=== PATIENT | female | born 1995 | race Caucasian/White ===

== ENCOUNTER 2017-10-28 17:13 | Outpatient (CLI) | payer OTHER ==
[2017-10-28 17:38] LABS: Appearance,Urine Cloudy (Clear); Bacteria,Urine Rare /hpf; Bilirubin,Urine Negative (Negative); Blood,Urine Negative (Negative); Calcium Oxalate Crystals,Urine Occasional /hpf; Color,Urine Yellow; Glucose,Urine (UA) Trace (Negative); Ketones,Urine Trace (Negative); Leukocyte Esterase,Urine Large (Negative); Mucus,Urine Many /hpf; Nitrite,Urine Negative (Negative); PH, Urine 5.5 (5.0-8.0); Protein,Urine 1+ (Negative); Squamous Epithelial Cell,Urine 33 /hpf (0-4); WBC,Urine 50 /hpf (0-5)
[2017-10-28 17:49] VITALS: BP 114/71; PULSE 101; RESP 17; TEMP 97.9
--- NOTE | 2017-10-29 10:36 | P.MSEPDOC ---
Presenting Problems - Arrival Data Date of Arrival on Unit: 10/28/17 Time of Arrival on Unit: 17:13 Mode of Transport: Ambulatory - Complaint OB-Reason for Admission/Chief Complaint: Possible Onset of Labor Comment: Lower abdominal cramping and lower back pain x 3 days Medical History - Information : 2 Para: 1 Term: 1 : 0 Abortions: Spontaneous or Elective: 0 Number of Living Children: 1 - Gestational Age Gestational Age by NORTH (wks/days): 37 Weeks and 3 Days - History Complications: No Care Review of Systems - Review of Systems Constitutional: No problems Breast: No problems ENT: No problems Cardiovascular: No problems Respiratory: No problems Gastrointestinal: No problems Genitourinary: No problems Musculoskeletal: No problems Neurological: No problems Skin: No problems Vital Signs - Temperature Temperature: 97.9 F Temperature Source: Oral - Pulse Pulse Oximetery Pulse Rate: 101 Pulse Assessment Method: Automatic Cuff - Respirations Respiratory Rate: 17 Oxygen Delivery Method: Room Air O2 Sat by Pulse Oximetry: 97 - Blood Pressure Right Arm Blood Pressure: 114/71 Blood Pressure Mean: 85 Blood Pressure Source: Automatic Cuff Medical Screen Scoring (Pre) - Cervical Exam Dilation: 1-3 cm = 1 Effacement: More than 50% = 2 Membranes: Intact - Uterine Contractions Frequency: N/A Duration: N/A Intensity: N/A - Maternal Vital Signs Maternal Temperature: N/A Maternal Blood Pressure: N/A Signs of Preeclampsia: N/A Maternal Respirations: N/A - Pain Assessment Pain Location and Character: Lower, Back, Abdomen Pain Scale Used: Numeric (1 - 10) Pain Intensity: 5 Pain Management Goal: 0 Pain Description: Cramping Pain Radiation Location: n/a Pain Frequency: Intermittent Pain Duration: 3 Pain Duration Units: Days Pain Behavior: Vocalization Effects of Pain: n/a Pain Aggravating Factors: None Pharmacological Interventions: Discuss Pain Med Options Non-Pharmacological Interventions: Distraction - Maternal Trauma Maternal Trauma: N/A - Assessment Baseline FHR: 140 Heart Rate - NICHD Category: Category I (Normal) = 0 NST: Reactive Position: N/A Station: N/A - Total Score Total Score (Pre): 3 - Level of Risk Level of Risk: Low (0-5) Physician Notification (Pre) - Physician Notified Physician Notified Date: 10/28/17 Physician Notified Time: 17:19 Physician/Practitioner Notifed:: Ranjan Spoke With: Ranjan New Order Received: Yes (U/A and cervical exam.) Medical Screen Scoring (Post) - Cervical Exam Dilation: 1-3 cm = 1 Effacement: More than 50% = 2 Membranes: Intact - Uterine Contractions Frequency: > or = 36 weeks =2 Duration: > 40 seconds = 2 Intensity: N/A - Maternal Vital Signs Maternal Temperature: N/A Maternal Blood Pressure: N/A Signs of Preeclampsia: N/A Maternal Respirations: N/A - Pain Assessment Pain Location and Character: Lower, Back, Abdomen Pain Scale Used: Numeric (1 - 10) Pain Intensity: 5 Pain Management Goal: 0 Pain Description: Cramping Pain Radiation Location: n/a Pain Frequency: Intermittent Pain Duration: 3 Pain Duration Units: Days Pain Behavior: Vocalization Effects of Pain: n/a Pain Aggravating Factors: None Pharmacological Interventions: Discuss Pain Med Options Non-Pharmacological Interventions: Darkened Room - Maternal Trauma Maternal Trauma: N/A - Assessment Heart Rate: 135 Heart Rate - NICHD Category: Category I (Normal) = 0 NST: Reactive Position: N/A Station: N/A - Total Score Total Score (Post): 7 - Post Treatment Level of Risk Post Treatment Level of Risk: Medium (6-9) Physician Notification (Post) - Physician Notified Physician Notified Date: 10/28/17 Physician Notified Time: 18:35 Physician/Practitioner Notified:: Ranjan Spoke With: Ranjan New Order Received: Yes (discharge home) Disposition - Disposition OB Disposition: Discharge to home Discharge Date: 10/28/17 Discharge Time: 18:40 I agree with the RN Medical Screening Exam: Yes Risk & Benefit of care provided described in d/c instruction: Yes Diagnosis: FALSE LABOR AT OR AFTER 37 COMPLETED WEEKS OF GESTATION
== END 2017-10-28 18:40 | disposition home or self-care (01) ==
LOC: FBPOP 17:13
PROVIDERS: ATTEND Obstetrics & Gynecology
DX: O47.1 False labor at or after 37 completed weeks of gestation (principal); Z3A.37 37 weeks gestation of pregnancy
CPT/HCPCS: 59025; 81001; G0463; 99213

== ENCOUNTER 2017-11-02 18:58 | Outpatient (CLI) | payer OTHER ==
[2017-11-02 19:53] VITALS: BP 112/75; PULSE 106; RESP 15; TEMP 97.7
--- NOTE | 2017-11-14 11:12 | P.MSEPDOC ---
Presenting Problems - Arrival Data Date of Arrival on Unit: 11/02/17 Time of Arrival on Unit: 18:58 Mode of Transport: Ambulatory - Complaint OB-Reason for Admission/Chief Complaint: Decreased Movement, Observation/ Evaluation Medical History - Information : 2 Para: 1 Term: 1 : 0 Abortions: Spontaneous or Elective: 0 Number of Living Children: 1 - Gestational Age Gestational Age by NORTH (wks/days): 38 Weeks and 1 Days Review of Systems - Review of Systems Constitutional: No problems Breast: No problems ENT: No problems Cardiovascular: No problems Respiratory: No problems Gastrointestinal: No problems Genitourinary: No problems Musculoskeletal: No problems Neurological: No problems Skin: No problems Vital Signs - Temperature Temperature: 97.7 F Temperature Source: Temporal Artery Scan - Pulse Pulse Oximetery Pulse Rate: 106 Pulse Assessment Method: Automatic Cuff - Respirations Respiratory Rate: 15 Oxygen Delivery Method: Room Air O2 Sat by Pulse Oximetry: 100 - Blood Pressure Right Arm Blood Pressure: 112/75 Blood Pressure Mean: 87 Blood Pressure Source: Automatic Cuff Medical Screen Scoring (Pre) - Cervical Exam Dilation: 1-3 cm = 1 Effacement: More than 50% = 2 Membranes: Intact - Uterine Contractions Frequency: > or = 36 weeks =2 Duration: N/A Intensity: N/A - Maternal Vital Signs Maternal Temperature: N/A Maternal Blood Pressure: N/A Signs of Preeclampsia: N/A Maternal Respirations: N/A - Pain Assessment Pain Location and Character: Lower, Abdomen Pain Scale Used: Numeric (1 - 10) Pain Intensity: 4 Pain Management Goal: 2 Pain Description: *Acute Pain Radiation Location: none Pain Frequency: Intermittent Pain Duration: 1 Pain Duration Units: Days Pain Behavior: None Exhibited Effects of Pain: none Pain Aggravating Factors: Contractions - Maternal Trauma Maternal Trauma: N/A - Assessment Baseline FHR: 130 Heart Rate - NICHD Category: Category I (Normal) = 0 NST: Reactive Position: N/A Station: N/A - Total Score Total Score (Pre): 5 - Level of Risk Level of Risk: Low (0-5) Medical Screen Scoring (Post) - Cervical Exam Dilation: 1-3 cm = 1 Effacement: More than 50% = 2 Membranes: Intact - Uterine Contractions Frequency: N/A Duration: N/A Intensity: N/A - Maternal Vital Signs Maternal Temperature: N/A Maternal Blood Pressure: N/A Signs of Preeclampsia: N/A Maternal Respirations: N/A - Pain Assessment Pain Location and Character: Lower, Abdomen Pain Scale Used: Numeric (1 - 10) Pain Intensity: 4 Pain Management Goal: 2 Pain Description: *Acute Pain Radiation Location: none Pain Frequency: Intermittent Pain Duration: 1 Pain Duration Units: Days Pain Behavior: Fidgeting Effects of Pain: none Pain Aggravating Factors: Contractions - Maternal Trauma Maternal Trauma: N/A - Assessment Heart Rate: 125 Heart Rate - NICHD Category: Category I (Normal) = 0 NST: Reactive Position: N/A Station: N/A - Total Score Total Score (Post): 3 - Post Treatment Level of Risk Post Treatment Level of Risk: Low (0-5) Physician Notification (Post) - Physician Notified Physician Notified Date: 11/02/17 Physician Notified Time: 20:15 Physician/Practitioner Notified:: Dr Woodruff New Order Received: Yes Disposition - Disposition OB Disposition: Discharge to home Discharge Date: 11/02/17 Discharge Time: 20:27 I agree with the RN Medical Screening Exam: Yes Risk & Benefit of care provided described in d/c instruction: Yes Diagnosis: DECREASED MOVEMENTS, THIRD TRIMESTER, FETUS 1
== END 2017-11-02 20:28 | disposition home or self-care (01) ==
LOC: FBPOP 18:58
PROVIDERS: ATTEND Obstetrics & Gynecology
DX: O36.8130 Decreased fetal movements, third trimester, not applicable or unspecified (principal); Z3A.38 38 weeks gestation of pregnancy
CPT/HCPCS: 59025; G0463; 99213

== ENCOUNTER 2017-11-02 22:30 | Inpatient (IN) | payer OTHER ==
[2017-11-02] MEDS: LACTATED RINGERS 1,000 ML IV SCH (23:50)
[2017-11-02] MEDS ORDERED: CARBOPROST TROMETHAMINE 250 MCG/ML 1 ML AMP IM PRN (23:53)
[2017-11-02] MEDS ORDERED: TERBUTALINE 1 MG/ML VIAL SQ PRN (23:53)
[2017-11-02] MEDS ORDERED: LIDOCAINE 1% (PF) 10 MG/ML (30 ML SDV) SQ PRN (23:53)
[2017-11-02] MEDS ORDERED: OXYTOCIN 10 UNIT/ML 1 ML VIAL IM PRN (23:53)
[2017-11-02] MEDS ORDERED: METHYLERGONOVINE 0.2 MG/ML 1 ML AMP IM PRN (23:53)
[2017-11-03 00:02] LABS: Basophils % (A) 0 %; Eosinophils # (A) 0.1 k/uL (0-0.7); Eosinophils % (A) 1 %; HCT 30.9 % (34.0-46.0); HGB 10.2 gm/dL (11.4-16.0); Hypochromasia Slight; Lymphocytes # (A) 1.7 k/uL (1.0-4.8); Lymphocytes % (A) 11 %; MCH 24.3 pg (25.0-35.0); MCV 73.7 fL (80.0-100.0); Mean Platelet Volume 8.9; Microcytosis Slight; Monocytes % (A) 7 %; Neutrophils % (A) 80 %; Platelet Count 266 k/uL (150-450); Poikilocytosis Moderate; RBC 4.19 m/uL (3.80-5.40); RDW 14.3 % (11.5-15.5)
[2017-11-03 00:04] VITALS: BMI 35.6
[2017-11-03] MEDS: LACTATED RINGERS 1,000 ML IV SCH ×3 (00:23→19:54)
[2017-11-03] MEDS ORDERED: fentaNYL (PF) 50 MCG/ML 5 ML AMP ONE (00:45)
[2017-11-03] MEDS ORDERED: SODIUM CHLORIDE 0.9% 100 ML BAG ONE (00:45)
[2017-11-03] MEDS ORDERED: BUPIVACAINE (PF) 0.25% 30 ML VIAL ONE (00:45)
[2017-11-03] MEDS ORDERED: BUPIVACAINE (PF) 0.25% 25 ML, fentaNYL (PF) 200 MCG in SODIUM CHLORIDE 0.9% 71 ML EPIDURAL ONE (01:09)
--- NOTE | 2017-11-03 07:15 | P.HPOB ---
History of Present Illness H&P Date: 11/03/17 Chief Complaint: 38+ weeks, early labor The patient is a 22-year-old 2 para 1001 admitted at 38+ weeks as established by an 8 week ultrasound. She is admitted in early labor with all signs reassuring. Her has been essentially incompetent though she did have chlamydia early in the which was treated and cured. Group B strep status is negative. Obstetrical history 2 para 1001 with 1 term vaginal delivery without complications. Current statistics are listed in history of present illness. EDC of 11/15/2017 was established by an 8 week ultrasound. Laboratory workup done Schutze blood type of O+ with a negative antibody screen. Rubella status is immune immune. The remainder of the laboratory workup was within normal limits. Early Glucola as well as second trimester Glucola were within normal limits. Group B strep status is negative. Gynecologic history: Essentially unremarkable though she was found chlamydia early in the and was treated and cured. There is no other history of STDs by the patient's report. Review of Systems Review of systems is confined to history of present illness. Past Medical History Past Medical History: No Reported History History of Any Multi-Drug Resistant Organisms: None Reported Past Surgical History: Adenoidectomy, Tonsillectomy Past Anesthesia/Blood Transfusion Reactions: No Reported Reaction Past Psychological History: No Psychological Hx Reported Smoking Status: Never smoker Past Alcohol Use History: None Reported Past Drug Use History: None Reported - Past Family History Mother Family Medical History: No Reported History Medications and Allergies Home Medications Medication Instructions Recorded Confirmed Type Sbe-Kpwm-Cyjdf Acid 1 cap PO HS 04/30/17 11/02/17 History [-U Capsule (formulary)] Allergies Allergy/AdvReac Type Severity Reaction Status Date / Time codeine AdvReac Nausea & Verified 11/02/17 22:34 Vomiting sulfamethoxazole AdvReac Nausea & Verified 11/02/17 22:34 [From Bactrim] Vomiting trimethoprim [From Bactrim] AdvReac Nausea & Verified 11/02/17 22:34 Vomiting Exam - Vital Signs Vital signs: Vital Signs Temp Pulse Resp BP 11/02/17 22:35 97.4 F L 124 H 15 128/73 Intake and Output 11/02/17 11/03/17 11/03/17 22:59 06:59 14:59 Intake Total 2000 Output Total 200 Balance 1800 Intake: Intake, IV Titration 2000 Amount Lactated Ringers 1,000 ml 2000 @ 125 mls/hr IV .Q8H [facility] Rx#:[id number] Output: Urine 200 Other: Weight 97.069 kg 97.069 kg In general, this is a well-developed, well-nourished white female in no acute distress. Her heart has a regular rhythm and rate without murmur. Her lungs are clear to auscultation bilaterally in all ferrell. Her abdomen is gravid, nondistended, has normal active bowel sounds, soft, nontender, and without any palpable masses aside from uterine fundus. Her extremities are without any cyanosis, clubbing, or edema and are nontender to palpation bilaterally. Digital cervical examination at this time demonstrates her to be 9 cm dilated, 100% effaced, the vertex in presentation at 0 station. Artificial rupture of membranes is carried out demonstrating clear fluid. Results Result Diagrams: 11/02/17 23:50 Abnormal Lab Results - Last 24 Hours (Table) 11/02/17 Range/Units 23:50 WBC 15.0 H (4.0-11.0) k/uL Hgb 10.2 L (11.4-16.0) gm/dL Hct 30.9 L (34.0-46.0) % MCV 73.7 L (80.0-100.0) fL MCH 24.3 L (25.0-35.0) pg Neutrophils # 12.0 H (1.3-7.7) k/uL Assessment and Plan (1) Active labor at term Current Visit: No Status: Acute Code(s): OSA3928 - SNOMED Code(s): 31053773 Plan: The patient is admitted for close maternal and surveillance and expectant management will be practiced. She is a good candidate for an epidural and one has been placed for analgesia. She will have close maternal and surveillance and expectant management will be practiced. Anticipate normal vaginal delivery in the near future.
[2017-11-03] MEDS ORDERED: diphenhydrAMINE 50 MG/ML 1 ML VIAL IVP PRN ×2 (07:33)
[2017-11-03] MEDS ORDERED: HYDROcodone/APAP 5-325MG 1 EACH TAB PO PRN (07:33)
[2017-11-03] MEDS ORDERED: BENZOCAINE/MENTHOL SPRAY 1 GM/SPRAY AEROSOL TOPICAL PRN (07:33)
[2017-11-03] MEDS ORDERED: ACETAMINOPHEN TAB 325 MG TAB PO PRN (07:33)
[2017-11-03] MEDS ORDERED: WITCH HAZEL 1 EACH MED..PAD TOPICAL PRN (07:33)
[2017-11-03] MEDS ORDERED: diphenhydrAMINE 50 MG CAP PO PRN (07:33)
[2017-11-03] MEDS ORDERED: ZOLPIDEM 5 MG TAB PO PRN (07:33)
[2017-11-03] MEDS ORDERED: HYDROCORTISONE 2.5% RECTAL CREAM 30 GM TUBE RECTAL PRN (07:33)
[2017-11-03] MEDS ORDERED: SIMETHICONE 80 MG CHEWABLE PO PRN (07:33)
[2017-11-03] MEDS ORDERED: diphenhydrAMINE 25 MG CAP PO PRN (07:33)
--- NOTE | 2017-11-03 07:38 | P.PROBDLV ---
Vaginal Delivery Note - . Vaginal Delivery Note: The patient is a 22-year-old 2 para 1001 admitted at 38+ weeks by good dating parameters. She is admitted in early active labor with all signs reassuring. Her has been uncomplicated aside from the discovery of chlamydia which was treated and cured. On labor and delivery, she initially presented for decreased movement was found to actually have adequate cervical change to diagnose labor. She was admitted for early active labor with all signs reassuring. On labor and delivery, she made slow progress through the active phase of labor and had an epidural catheter placed for analgesia. She underwent artificial rupture of membranes at approximately 9 cm of dilation for clear fluid. She then progressed quickly to complete and pushed over the course of 1-2 contractions to a normal spontaneous vaginal delivery of a viable 6 lbs. 8 oz. baby girl with Apgars of 9 at 1 minute and 9 at 5 minutes delivered in the direct occiput anterior position. The placenta was delivered spontaneously, intact, and grossly normal with a grossly normal three-vessel cord inserted roughly 2 cm from margin of the placental disc. There were no lacerations of the perineum, vagina, or cervix. Estimated blood loss for the entire case was approximately 100 mL. There were no complications. All sponge, instrument, and needle counts were correct. Both mother and are resting comfortably in recovery.
[2017-11-03] MEDS ORDERED: OXYTOCIN 20 UNITS/1000 ML NS 1,000 ML IV SCH (07:45)
[2017-11-03] MEDS: IBUPROFEN 600 MG TAB PO PRN ×2 (08:36→18:42)
[2017-11-03] MEDS: SENNOSIDES-DOCUSATE SODIUM 1 EACH TAB PO SCH ×2 (08:37→20:56)
[2017-11-04] MEDS: IBUPROFEN 600 MG TAB PO PRN ×2 (00:29→06:44)
--- NOTE | 2017-11-04 07:51 | P.DS ---
Providers Date of admission: 11/02/17 23:38 Expected date of discharge: 11/04/17 Attending physician: Andi Woodruff Primary care physician: Stated None - Discharge Diagnosis(es) (1) Active labor at term Current Visit: Yes Status: Acute (2) Normal spontaneous vaginal delivery Current Visit: Yes Status: Acute Hospital Course: This is a 22-year-old 2 now para 2 woman who presented at 38+ weeks gestation in spontaneous active labor. She had an unremarkable first stage of labor and underwent artificial rupture of membranes. She then had a precipitous second stage of labor to deliver a liveborn female infant over an intact perineum. Weight was 6 lbs. 8 oz. and Apgars were 9 at 1 minute and 9 at 5 minutes. The patient's course was entirely unremarkable and day #1 she was ambulating and voiding without difficulty and was tolerating a general diet. Her lochia was decreasing and her pain was controlled with ibuprofen. She was therefore discharged home with routine instructions for postoperative care and follow-up. Procedures: Normal spontaneous vaginal delivery Patient Condition at Discharge: Good Plan - Discharge Summary New Discharge Prescriptions: New Ibuprofen [Motrin] 600 mg PO Q6HR PRN tab PRN Reason: Mild Pain Or Fever >= 100.5 No Action Kis-Iajq-Xdcaa Acid [-U Capsule (formulary)] 1 cap PO HS Discharge Medication List Ojs-Tasi-Slkui Acid [-U Capsule (formulary)] 1 cap PO HS [History] Ibuprofen [Motrin] 600 mg PO Q6HR PRN tab 11/04/17 [Rx] Follow up Appointment(s)/Referral(s): Andi Woodruff MD [STAFF PHYSICIAN] - 6 Weeks Activity/Diet/Wound Care/Special Instructions: Follow-up in the office in 6 weeks . Call with any concerning signs or symptoms including heavy vaginal bleeding, severe abdominal pain, fever greater than 101, swelling or redness of the lower extremities, foul vaginal discharge, or signs of depression. Nothing in the vagina for 6 weeks after delivery, specifically no intercourse. Discharge Disposition: HOME SELF-CARE
[2017-11-04 10:23] VITALS: BP 114/75; PULSE 79; RESP 18; TEMP 97.7
[2017-11-04] MEDS: SENNOSIDES-DOCUSATE SODIUM 1 EACH TAB PO SCH (10:29)
== END 2017-11-04 12:30 | disposition home or self-care (01) | DRG 775 ==
LOC: FBPOP 22:30 → 4FBP 23:38
PROVIDERS: ADMIT Obstetrics & Gynecology; ATTEND Obstetrics & Gynecology
PROC: 10E0XZZ Delivery of Products of Conception, External Approach (ICD-10-PCS; principal; 2017-11-02)
PROC: 10907ZC Drainage of Amniotic Fluid, Therapeutic from Products of Conception, Via Natural or Artificial Opening (ICD-10-PCS; 2017-11-02)
PROC: 00HU33Z Insertion of Infusion Device into Spinal Canal, Percutaneous Approach (ICD-10-PCS; 2017-11-02)
PROC: 3E0R3BZ Introduction of Anesthetic Agent into Spinal Canal, Percutaneous Approach (ICD-10-PCS; 2017-11-02)
DX: O36.8190 Decreased fetal movements, unspecified trimester, not applicable or unspecified (principal); O62.3 Precipitate labor; Z37.0 Single live birth; Z3A.38 38 weeks gestation of pregnancy; Z88.1 Allergy status to other antibiotic agents; Z88.5 Allergy status to narcotic agent; Z88.2 Allergy status to sulfonamides; Z86.19 Personal history of other infectious and parasitic diseases
CPT/HCPCS: 59025; 85025; 88307; 99213

== ENCOUNTER → 2018-07-06 | Outpatient (CLI) | payer OTHER ==
--- NOTE | 2018-07-06 13:21 | US ---
EXAMINATION TYPE: US pelvic complete DATE OF EXAM: 07/06/2018 COMPARISON: NONE CLINICAL HISTORY: N911 SECONDARY AMENORRHEA. Patient gave 8 months ago, hasn't had a cycle sinc e. TECHNIQUE: . Transabdominal sonographic images of the pelvis were acquired. Date of LMP: 8 months ago EXAM MEASUREMENTS: Uterus: 9.2 x 3.9 x 4.5 cm Endometrial Stripe: 0.9 cm Right Ovary: 3.9 x 2.5 x 2.6 cm Left Ovary: 5.2 x 2.6 x 3.7 cm 1. Uterus: Anteverted wnl 2. Endometrium: wnl 3. Right Ovary: Dominant follicle measures 1.6 x 1.5 x 1.5 cm 4. Left Ovary: Large in size with no cystic or solid masses visualized 5. Bilateral Adnexa: wnl 6. Posterior cul-de-sac: wnl IMPRESSION: 1. Endometrial thickness is within normal limits for a premenopausal female. 2. Slight asymmetric size of the ovaries is incidentally noted..
== END | disposition home or self-care (01) ==
LOC: RADUSWWP 08:59
PROVIDERS: ATTEND Family Medicine
DX: N91.1 Secondary amenorrhea (principal)
CPT/HCPCS: 76856

== ENCOUNTER 2021-08-27 09:14 | Emergency (ER) | payer OTHER ==
[2021-08-27 09:18] VITALS: RESP 18
[2021-08-27] MEDS ORDERED: SODIUM CHLORIDE 0.9% 2,000 ML IV STA (09:29)
--- NOTE | 2021-08-27 09:35 | ED ---
General Adult HPI - General Chief complaint: Dizziness Stated complaint: 27 wks preg, dizziness & dehydration Time Seen by Provider: 08/27/21 09:20 Source: patient, RN notes reviewed Mode of arrival: ambulatory Limitations: no limitations - History of Present Illness Initial comments: This a 26 a female presents emergency Department chief complaint of possible dehydration. Patient states she just feels very thirsty, has not been able to get enough in. She recently diagnosed urinary tract infection by her [employer]ACH[employer] yesterday. She was placed on Macrobid. He has taken Macrobid in the past. Patient states she just feels lightheaded she had no syncopal episode no chest pain or shortness breath no focal weakness no blurred vision states that the room is spinning. Patient denies any abdominal pain and she is 27 weeks she states that she's measuring large for gestational age. - Related Data Home Medications Medication Instructions Recorded Confirmed Xnr-Qgoo-Gwozs Acid 1 cap PO DAILY 04/30/17 08/27/21 [-U Capsule (formulary)] Nitrofurantoin Monohyd/M-Cryst 100 mg PO BID 08/27/21 08/27/21 [Macrobid] Omeprazole 20 mg PO DAILY 08/27/21 08/27/21 Allergies Allergy/AdvReac Type Severity Reaction Status Date / Time codeine AdvReac Nausea & Verified 11/02/17 22:34 Vomiting sulfamethoxazole AdvReac Nausea & Verified 11/02/17 22:34 [From Bactrim] Vomiting trimethoprim [From Bactrim] AdvReac Nausea & Verified 11/02/17 22:34 Vomiting Review of Systems ROS Statement: Those systems with pertinent positive or pertinent negative responses have been documented in the HPI. ROS Other: All systems not noted in ROS Statement are negative. Past Medical History Past Medical History: No Reported History History of Any Multi-Drug Resistant Organisms: None Reported Past Surgical History: Adenoidectomy, Tonsillectomy Past Anesthesia/Blood Transfusion Reactions: No Reported Reaction Past Psychological History: No Psychological Hx Reported Smoking Status: Never smoker Past Alcohol Use History: None Reported Past Drug Use History: None Reported - Past Family History Mother Family Medical History: No Reported History General Exam Limitations: no limitations General appearance: alert, in no apparent distress Head exam: Present: atraumatic, normocephalic, normal inspection Eye exam: Present: normal appearance, PERRL, EOMI. Absent: scleral icterus, conjunctival injection, periorbital swelling ENT exam: Present: normal exam, normal oropharynx, mucous membranes moist Neck exam: Present: normal inspection, full ROM. Absent: tenderness, meningismus, lymphadenopathy Respiratory exam: Present: normal lung sounds bilaterally. Absent: respiratory distress, wheezes, rales, rhonchi, stridor Cardiovascular Exam: Present: normal rhythm, tachycardia, normal heart sounds. Absent: systolic murmur, diastolic murmur, rubs, gallop, clicks GI/Abdominal exam: Present: soft, normal bowel sounds. Absent: distended, tenderness, guarding, rebound, rigid Neurological exam: Present: alert, oriented X3 Skin exam: Present: warm, dry, intact, normal color. Absent: rash Course Vital Signs 08/27/21 08/27/21 09:16 10:43 Temperature 97.7 F Pulse Rate 116 H 102 H Respiratory 18 18 Rate Blood Pressure 113/68 115/76 O2 Sat by Pulse 98 100 Oximetry Medical Decision Making - Medical Decision Making 26-year-old female presented for possible dehydration. She is well-hydrated, feels greatly improved she does have some bacteria and she is on antibiotics. Patient feels comfortable discharged. Return parameters. - Lab Data Result diagrams: 08/27/21 09:56 08/27/21 09:56 Lab Results 08/27/21 08/27/21 08/27/21 Range/Units 09:56 09:56 09:56 WBC 8.2 (3.8-10.6) k/uL RBC 3.47 L (3.80-5.40) m/uL Hgb 10.9 L (11.4-16.0) gm/dL Hct 32.7 L (34.0-46.0) % MCV 94.2 (80.0-100.0) fL MCH 31.6 (25.0-35.0) pg MCHC 33.5 (31.0-37.0) g/dL RDW 14.0 (11.5-15.5) % Plt Count 176 (150-450) k/uL MPV 8.4 Neutrophils % 59 % Lymphocytes % 30 % Monocytes % 6 % Eosinophils % 1 % Basophils % 1 % Neutrophils # 4.8 (1.3-7.7) k/uL Lymphocytes # 2.5 (1.0-4.8) k/uL Monocytes # 0.5 (0-1.0) k/uL Eosinophils # 0.1 (0-0.7) k/uL Basophils # 0.1 (0-0.2) k/uL Poikilocytosis Slight Sodium 135 L (137-145) mmol/L Potassium 3.7 (3.5-5.1) mmol/L Chloride 107 (98-107) mmol/L Carbon Dioxide 21 L (22-30) mmol/L Anion Gap 7 mmol/L BUN 5 L (7-17) mg/dL Creatinine 0.52 (0.52-1.04) mg/dL Est GFR (CKD-EPI)AfAm >90 (>60 ml/min/1.73 sqM) Est GFR (CKD-EPI)NonAf >90 (>60 ml/min/1.73 sqM) Glucose 90 (74-99) mg/dL Calcium 8.0 L (8.4-10.2) mg/dL Magnesium 1.8 (1.6-2.3) mg/dL Total Bilirubin 0.6 (0.2-1.3) mg/dL AST 35 (14-36) U/L ALT 35 H (4-34) U/L Alkaline Phosphatase 96 (38-126) U/L Total Protein 6.1 L (6.3-8.2) g/dL Albumin 3.0 L (3.5-5.0) g/dL Lipase 102 (23-300) U/L Urine Color Dark Green Urine Appearance Slightly Cloudy H (Clear) Urine pH 6.5 (5.0-8.0) Ur Specific [place] 1.020 (1.001-1.035) Urine Protein Trace (Negative) Urine Glucose (UA) Negative (Negative) Urine Ketones Negative (Negative) Urine Blood Negative (Negative) Urine Nitrite Negative (Negative) Urine Bilirubin Negative (Negative) Urine Urobilinogen 4.0 (<2.0) mg/dL Ur Leukocyte Esterase Moderate (Negative) Urine WBC 5 (0-5) /hpf Ur Squamous Epith Cells 15 H (0-4) /hpf Urine Bacteria Few H (None) /hpf Urine Mucus Moderate H (None) /hpf Disposition Clinical Impression: Lightheadedness, , Dehydration Disposition: HOME SELF-CARE Condition: Stable Instructions (If sedation given, give patient instructions): Dizziness (ED) Additional Instructions: Please return to the Emergency Department if symptoms worsen or any other concerns. Is patient prescribed a controlled substance at d/c from ED?: No Referrals: None,Stated [Primary Care Provider] - 1-2 days Time of Disposition: 11:37
[2021-08-27 10:07] LABS: Basophils # (A) 0.1 k/uL (0-0.2); Basophils % (A) 1 %; Eosinophils # (A) 0.1 k/uL (0-0.7); Eosinophils % (A) 1 %; HCT 32.7 % (34.0-46.0); HGB 10.9 gm/dL (11.4-16.0); Lymphocytes # (A) 2.5 k/uL (1.0-4.8); Lymphocytes % (A) 30 %; MCH 31.6 pg (25.0-35.0); MCHC 33.5 g/dL (31.0-37.0); MCV 94.2 fL (80.0-100.0); Mean Platelet Volume 8.4; Monocytes # (A) 0.5 k/uL (0-1.0); Monocytes % (A) 6 %; Neutrophils # (A) 4.8 k/uL (1.3-7.7); Neutrophils % (A) 59 %; Platelet Count 176 k/uL (150-450); Poikilocytosis Slight; RBC 3.47 m/uL (3.80-5.40); WBC 8.2 k/uL (3.8-10.6)
[2021-08-27 10:29] LABS: ALT 35 U/L (4-34); AST 35 U/L (14-36); African American GFR (CKD) >90 (>60 ml/min/1.73 sqM); Alkaline Phosphatase 96 U/L (38-126); Anion Gap 7 mmol/L; Blood Urea Nitrogen 5 mg/dL (7-17); Carbon Dioxide 21 mmol/L (22-30); Chloride 107 mmol/L (98-107); Glucose 90 mg/dL (74-99); Lipase 102 U/L (23-300); Magnesium 1.8 mg/dL (1.6-2.3); Non-African American GFR(CKD) >90 (>60 ml/min/1.73 sqM); Potassium 3.7 mmol/L (3.5-5.1); Sodium 135 mmol/L (137-145); Total Bilirubin 0.6 mg/dL (0.2-1.3); Total Protein 6.1 g/dL (6.3-8.2)
[2021-08-27] MEDS ORDERED: FAMOTIDINE 20 MG TAB PO STA (10:33)
[2021-08-27 11:11] LABS: Appearance,Urine Slightly Cloudy (Clear); PH, Urine 6.5 (5.0-8.0); Protein,Urine Trace (Negative)
[2021-08-27 11:12] LABS: Bilirubin,Urine Negative (Negative); Blood,Urine Negative (Negative); Glucose,Urine (UA) Negative (Negative); Ketones,Urine Negative (Negative); Leukocyte Esterase,Urine Moderate (Negative); Nitrite,Urine Negative (Negative)
[2021-08-27 11:15] LABS: Squamous Epithelial Cell,Urine 15 /hpf (0-4); WBC,Urine 5 /hpf (0-5)
[2021-08-27 11:16] LABS: Bacteria,Urine Few /hpf; Mucus,Urine Moderate /hpf
[2021-08-27 12:02] VITALS: BP 119/76; PULSE 103; TEMP 98.5
== END 2021-08-27 11:55 | disposition home or self-care (01) ==
LOC: EC 09:14
DX: O26.812 Pregnancy related exhaustion and fatigue, second trimester (principal); O99.282 Endocrine, nutritional and metabolic diseases complicating pregnancy, second trimester; E86.0 Dehydration; R42 Dizziness and giddiness; Z3A.27 27 weeks gestation of pregnancy; Z88.1 Allergy status to other antibiotic agents; Z88.2 Allergy status to sulfonamides; Z88.5 Allergy status to narcotic agent
CPT/HCPCS: 36415; 80053; 81001; 83690; 83735; 85025; 93005; 96360; 96361; 99284

== ENCOUNTER 2021-08-31 11:01 | Outpatient (CLI) | payer OTHER ==
[2021-08-31] MEDS: DEXTROSE 5%-LACTATED RINGERS 1,000 ML IV SCH ×2 (11:20→11:50)
[2021-08-31 11:31] VITALS: BP 116/66
[2021-08-31] MEDS ORDERED: LACTATED RINGERS 1,000 ML IV SCH (12:30)
[2021-08-31 13:08] VITALS: PULSE 98; RESP 18; TEMP 96.8
== END 2021-08-31 13:00 | disposition home or self-care (01) ==
LOC: FBPOP 11:01
PROVIDERS: ATTEND Obstetrics & Gynecology
DX: O99.282 Endocrine, nutritional and metabolic diseases complicating pregnancy, second trimester (principal); E86.0 Dehydration; Z3A.28 28 weeks gestation of pregnancy; Z88.2 Allergy status to sulfonamides; Z88.5 Allergy status to narcotic agent
CPT/HCPCS: 59025; 96360; 96361

== ENCOUNTER 2021-09-01 16:51 | Outpatient (CLI) | payer OTHER ==
[2021-09-01] MEDS ORDERED: LACTATED RINGERS 1,000 ML IV SCH (17:30)
[2021-09-01 17:47] LABS: Amorphous Sediment,Urine Rare /hpf; Appearance,Urine Cloudy (Clear); Bilirubin,Urine Negative (Negative); Blood,Urine Negative (Negative); Color,Urine Dark Yellow; Glucose,Urine (UA) Negative (Negative); Ketones,Urine Negative (Negative); Leukocyte Esterase,Urine Moderate (Negative); Mucus,Urine Rare /hpf; Nitrite,Urine Negative (Negative); Protein,Urine Negative (Negative); Specific Gravity,Urine 1.017 (1.001-1.035); Squamous Epithelial Cell,Urine 4 /hpf (0-4); WBC,Urine 2 /hpf (0-5)
[2021-09-01 18:45] VITALS: BP 111/61; PULSE 98; RESP 18
--- NOTE | 2021-10-20 17:56 | P.MSEPDOC ---
Presenting Problems - Arrival Data Date of Arrival on Unit: 09/01/21 Time of Arrival on Unit: 16:51 Mode of Transport: Ambulatory - Complaint OB-Reason for Admission/Chief Complaint: Other Comment: pt came in with dizziness, cramping, and diaphoresis, wants some hydration for possible dehydration per Dr. Woodruff's orders yesterday Medical History - Gestational Age Gestational Age by NORTH (wks/days): 28 Weeks and 4 Days Review of Systems - Review of Systems Constitutional: No problems Breast: No problems ENT: No problems Cardiovascular: No problems Respiratory: No problems Gastrointestinal: No problems Genitourinary: No problems Musculoskeletal: No problems Neurological: No problems Skin: No problems Vital Signs - Pulse Right Brachial Pulse Rate: 98 Pulse Assessment Method: Automatic Cuff - Respirations Respiratory Rate: 18 Oxygen Delivery Method: Room Air O2 Sat by Pulse Oximetry: 100 - Blood Pressure Right Arm Blood Pressure: 111/61 Blood Pressure Mean: 77 Blood Pressure Source: Automatic Cuff Medical Screen Scoring - Uterine Contractions Frequency From (mins): 0 - Assessment - Baby A Baseline FHR: 140 Heart Rate - NICHD Category: Category I (Normal) Physician Notification - Physician Notified Physician Notified Date: 09/01/21 Physician Notified Time: 17:20 New Order Received: Yes - Notification Comment Comment: UA sent and 1 liter of LR given, pt feeling better, discharged home Maternal Triage Index - Maternal Triage Index Presenting for scheduled procedure w/no complaint: No - Stat/Priority 1 Stat Priority 1: No - Urgent/Priority 2 Urgent Priority 2: No - Prompt/Priority 3 Prompt Priority 3: No - Non-Urgent/Priority 4 Non-Urgent Priority 4: Yes Criteria Met for Priority 4: pt 28 4/7 weeks ga, had ivf yesterday, told to come back if still not feeling well per Dr. Woodruff's orders Disposition - Disposition OB Disposition: Triage, Discharge to home, Written follow up instructions reviewed Discharge Date: 09/01/21 Discharge Time: 18:35 I agree with the RN Medical Screening Exam: Yes Case reviewed; plan agreed upon as documented in EMR&OBIX.: Yes Diagnosis: DEHYDRATION
== END 2021-09-01 18:35 | disposition home or self-care (01) ==
LOC: FBPOP 16:51
PROVIDERS: ATTEND Obstetrics & Gynecology Obstetrics
DX: O99.283 Endocrine, nutritional and metabolic diseases complicating pregnancy, third trimester (principal); E86.0 Dehydration; Z3A.28 28 weeks gestation of pregnancy; Z88.2 Allergy status to sulfonamides; Z88.5 Allergy status to narcotic agent
CPT/HCPCS: 59025; 96360; 81001; G0463; 99214

== ENCOUNTER 2021-10-04 11:36 | Outpatient (CLI) | payer OTHER ==
[2021-10-04 12:24] LABS: Appearance,Urine Cloudy (Clear); Bacteria,Urine Occasional /hpf; Bilirubin,Urine Negative (Negative); Blood,Urine Negative (Negative); Color,Urine Yellow; Glucose,Urine (UA) Negative (Negative); Ketones,Urine Negative (Negative); Leukocyte Esterase,Urine Large (Negative); Mucus,Urine Few /hpf; Nitrite,Urine Negative (Negative); PH, Urine 6.5 (5.0-8.0); Protein,Urine Trace (Negative); RBC,Urine 2 /hpf (0-5); Specific Gravity,Urine 1.024 (1.001-1.035); Squamous Epithelial Cell,Urine 23 /hpf (0-4); WBC,Urine 14 /hpf (0-5)
[2021-10-04 13:00] VITALS: BP 119/64; PULSE 121; RESP 16; TEMP 97.8
--- NOTE | 2021-10-30 11:53 | P.MSEPDOC ---
Presenting Problems - Arrival Data Date of Arrival on Unit: 10/04/21 Time of Arrival on Unit: 11:40 Mode of Transport: Ambulatory - Complaint OB-Reason for Admission/Chief Complaint: Pain Medical History - Information : 3 Para: 2 - Gestational Age Gestational Age by NORTH (wks/days): 33 Weeks and 2 Days Review of Systems - Review of Systems Constitutional: No problems Breast: No problems ENT: No problems Cardiovascular: No problems Respiratory: No problems Gastrointestinal: No problems Genitourinary: No problems Musculoskeletal: No problems Neurological: No problems Skin: No problems Vital Signs - Temperature Temperature: 97.8 F Temperature Source: Axillary - Pulse Apical Pulse Rate: 121 Pulse Assessment Method: Automatic Cuff - Respirations Respiratory Rate: 16 Oxygen Delivery Method: Room Air O2 Sat by Pulse Oximetry: 98 - Blood Pressure Right Arm Sitting Blood Pressure: 119/64 Blood Pressure Mean: 82 Blood Pressure Source: Automatic Cuff Medical Screen Scoring - Cervical Exam Dilation (cm): 0 Effacement (%): 0 Station: -3 Membranes: Intact - Uterine Contractions Frequency From (mins): 0 Frequency To (mins): 0 Duration From (seconds): 0 Duration To (seconds): 0 Intensity: Absent - Assessment - Baby A Baseline FHR: 130 Heart Rate - NICHD Category: Category I (Normal) NST: Reactive Physician Notification - Physician Notified Physician Notified Date: 10/04/21 Physician Notified Time: 12:40 Physician: Andi Woodruff New Order Received: Yes - Notification Comment Comment: discharge ome Maternal Triage Index - Maternal Triage Index Presenting for scheduled procedure w/no complaint: No - Stat/Priority 1 Stat Priority 1: No - Urgent/Priority 2 Urgent Priority 2: Yes Provider Notified: Andi Woodruff Provider Notified Time: 11:50 Criteria Met for Priority 2: c/o contx <34 weeks Disposition - Disposition OB Disposition: Discharge to home Discharge Date: 10/04/21 Discharge Time: 13:00 I agree with the RN Medical Screening Exam: Yes Physician's MSE Comment: I have neither seen nor examined the patient. Case reviewed; plan agreed upon as documented in EMR&OBIX.: Yes Diagnosis: RELATED CONDITIONS, UNSPECIFIED, THIRD TRIMESTER
== END 2021-10-04 13:00 | disposition home or self-care (01) ==
LOC: FBPOP 11:36
PROVIDERS: ATTEND Obstetrics & Gynecology
DX: O26.893 Other specified pregnancy related conditions, third trimester (principal); R10.2 Pelvic and perineal pain; Z3A.33 33 weeks gestation of pregnancy; Z88.5 Allergy status to narcotic agent; Z88.2 Allergy status to sulfonamides
CPT/HCPCS: 59025; 81001; G0463; 99213

== ENCOUNTER 2021-10-26 09:32 | Outpatient (CLI) | payer OTHER ==
[2021-10-26 10:36] VITALS: BP 104/74; PULSE 120; RESP 16; TEMP 96.6
[2021-10-26 11:02] LABS: Appearance,Urine Clear (Clear); Bacteria,Urine Occasional /hpf; Bilirubin,Urine Negative (Negative); Blood,Urine Negative (Negative); Color,Urine Yellow; Glucose,Urine (UA) Negative (Negative); Ketones,Urine 1+ (Negative); Leukocyte Esterase,Urine Large (Negative); Mucus,Urine Rare /hpf; Nitrite,Urine Negative (Negative); Protein,Urine Trace (Negative); RBC,Urine <1 /hpf (0-5); Specific Gravity,Urine 1.014 (1.001-1.035); Squamous Epithelial Cell,Urine 13 /hpf (0-4); Urobilinogen,Urine <2.0 mg/dL (<2.0); WBC,Urine 7 /hpf (0-5)
--- NOTE | 2021-10-30 11:57 | P.MSEPDOC ---
Presenting Problems - Arrival Data Date of Arrival on Unit: 10/26/21 Time of Arrival on Unit: 09:32 Mode of Transport: Ambulatory - Complaint OB-Reason for Admission/Chief Complaint: Pain Comment: lower abd pain and pelvic pressure Medical History - Information : 3 Para: 2 Term: 2 : 0 Abortions: Spontaneous or Elective: 0 Number of Living Children: 2 - Gestational Age Gestational Age by NORTH (wks/days): 36 Weeks and 3 Days Review of Systems - Review of Systems Constitutional: No problems Breast: No problems ENT: No problems Cardiovascular: No problems Respiratory: No problems Gastrointestinal: No problems Genitourinary: No problems Musculoskeletal: No problems Neurological: No problems Skin: No problems Vital Signs - Temperature Temperature: 96.6 F Temperature Source: Temporal Artery Scan - Pulse Right Sitting Pulse Rate: 120 Pulse Assessment Method: Automatic Cuff - Respirations Respiratory Rate: 16 Oxygen Delivery Method: Room Air O2 Sat by Pulse Oximetry: 97 - Blood Pressure Right Arm Blood Pressure: 104/74 Blood Pressure Mean: 84 Blood Pressure Source: Automatic Cuff Medical Screen Scoring - Cervical Exam Dilation (cm): 2.5 Effacement (%): 50 Station: -2 Membranes: Intact - Uterine Contractions Intensity: Mild Resting: Soft to palpation - Assessment - Baby A Baseline FHR: 135 Heart Rate - NICHD Category: Category I (Normal) NST: Reactive Physician Notification - Physician Notified Physician Notified Date: 10/26/21 Physician Notified Time: 11:14 Physician: Andi Woodruff Order Received: Yes Maternal Triage Index - Non-Urgent/Priority 4 Non-Urgent Priority 4: Yes Criteria Met for Priority 4: reactive nst, occasional contractions, urinalysis sent fro culture Disposition - Disposition OB Disposition: Discharge to home Discharge Date: 10/26/21 Discharge Time: 11:13 I agree with the RN Medical Screening Exam: Yes Physician's MSE Comment: I have neither seen nor examined the patient. Case reviewed; plan agreed upon as documented in EMR&OBIX.: Yes Diagnosis: RELATED CONDITIONS, UNSPECIFIED, THIRD TRIMESTER
== END 2021-10-26 11:14 | disposition home or self-care (01) ==
LOC: FBPOP 09:32
PROVIDERS: ATTEND Obstetrics & Gynecology
DX: O26.893 Other specified pregnancy related conditions, third trimester (principal); R10.30 Lower abdominal pain, unspecified; Z3A.36 36 weeks gestation of pregnancy; Z88.5 Allergy status to narcotic agent; Z88.2 Allergy status to sulfonamides
CPT/HCPCS: 59025; 81001; 87086; G0463; 99213

== ENCOUNTER 2021-10-30 21:36 | Outpatient (CLI) | payer OTHER ==
[2021-10-30 22:17] VITALS: BP 122/76; PULSE 84; RESP 16; TEMP 97.3
--- NOTE | 2021-10-31 10:09 | P.MSEPDOC ---
Presenting Problems - Arrival Data Date of Arrival on Unit: 10/30/21 Time of Arrival on Unit: 21:36 Mode of Transport: Ambulatory - Complaint OB-Reason for Admission/Chief Complaint: Rule Out SROM Comment: possible ROM at 2030, unknown fluid color Medical History - Information : 3 Para: 2 Term: 2 : 0 Abortions: Spontaneous or Elective: 0 Number of Living Children: 2 - Gestational Age Gestational Age by NORTH (wks/days): 37 Weeks and 0 Days Review of Systems - Review of Systems Constitutional: No problems Breast: No problems ENT: No problems Cardiovascular: No problems Respiratory: No problems Gastrointestinal: No problems Genitourinary: No problems Musculoskeletal: No problems Neurological: No problems Skin: No problems Vital Signs - Temperature Temperature: 97.3 F Temperature Source: Temporal Artery Scan - Pulse Pulse Oximetery Pulse Rate: 84 Pulse Assessment Method: Pulse Oximetry - Respirations Respiratory Rate: 16 Oxygen Delivery Method: Room Air O2 Sat by Pulse Oximetry: 97 - Blood Pressure Right Arm Blood Pressure: 122/76 Blood Pressure Mean: 91 Blood Pressure Source: Automatic Cuff Medical Screen Scoring - Cervical Exam Dilation (cm): 3.5 Effacement (%): 60 Station: -3 Membranes: Intact - Uterine Contractions Frequency From (mins): 4 Frequency To (mins): 5 Duration From (seconds): 50 Duration To (seconds): 80 Intensity: Mild Resting: Soft to palpation - Assessment - Baby A Baseline FHR: 125 Heart Rate - NICHD Category: Category I (Normal) NST: Reactive Physician Notification - Physician Notified Physician Notified Date: 10/30/21 Physician Notified Time: 22:03 Physician: Andi Bonilla New Order Received: Yes - Notification Comment Comment: Dr. bonilla called, report given on maternal and status, complaints of possible ROM around 2029, negative amnisure, SVE 3.5/60/-3 and head not well applied to the cervix, NST reactive, contractions every 4-5 mins but patient only reports pressure with them not pain. Orders to discharge patient home. Maternal Triage Index - Maternal Triage Index Presenting for scheduled procedure w/no complaint: No - Stat/Priority 1 Stat Priority 1: No - Urgent/Priority 2 Urgent Priority 2: No - Prompt/Priority 3 Prompt Priority 3: No - Non-Urgent/Priority 4 Non-Urgent Priority 4: Yes Criteria Met for Priority 4: 37 0/7 weeks, possible ROM at 2030, vaginal pressure Disposition - Disposition OB Disposition: Discharge to home Discharge Date: 10/30/21 Discharge Time: 22:08 I agree with the RN Medical Screening Exam: Yes Physician's MSE Comment: I have another seen and examined the patient. Case reviewed; plan agreed upon as documented in EMR&OBIX.: Yes Diagnosis: RELATED CONDITIONS, UNSPECIFIED, THIRD TRIMESTER
== END 2021-10-30 22:08 | disposition home or self-care (01) ==
LOC: FBPOP 21:36
PROVIDERS: ATTEND Obstetrics & Gynecology
DX: O26.893 Other specified pregnancy related conditions, third trimester (principal); R10.2 Pelvic and perineal pain; Z3A.37 37 weeks gestation of pregnancy; Z88.5 Allergy status to narcotic agent; Z88.2 Allergy status to sulfonamides
CPT/HCPCS: 59025; 84112; G0463; 99213

== ENCOUNTER 2021-11-18 06:15 | Inpatient (IN) | payer OTHER ==
[2021-11-18] MEDS ORDERED: METHYLERGONOVINE 0.2 MG/ML 1 ML AMP IM PRN (06:49)
[2021-11-18] MEDS ORDERED: CARBOPROST TROMETHAMINE 250 MCG/ML 1 ML AMP IM PRN (06:49)
[2021-11-18] MEDS ORDERED: TERBUTALINE 1 MG/ML VIAL SQ PRN (06:49)
[2021-11-18] MEDS ORDERED: OXYTOCIN 10 UNIT/ML 1 ML VIAL IM PRN (06:49)
[2021-11-18] MEDS ORDERED: LIDOCAINE 0.5% (PF) 5 MG/ML (50 ML SDV) SQ PRN (06:49)
[2021-11-18] MEDS ORDERED: OXYTOCIN 30 UNITS/500 ML NS 30 UNIT in SALINE 1 500ML.BAG IV SCH (07:00)
[2021-11-18] MEDS: LACTATED RINGERS 1,000 ML IV SCH ×2 (07:13→09:14)
[2021-11-18 07:28] LABS: Basophils # (A) 0.1 k/uL (0-0.2); Basophils % (A) 1 %; Eosinophils % (A) 1 %; HCT 33.7 % (34.0-46.0); HGB 10.9 gm/dL (11.4-16.0); Hypochromasia Slight; Lymphocytes # (A) 2.6 k/uL (1.0-4.8); Lymphocytes % (A) 34 %; MCH 26.2 pg (25.0-35.0); MCHC 32.2 g/dL (31.0-37.0); MCV 81.2 fL (80.0-100.0); Mean Platelet Volume 9.9; Monocytes # (A) 0.7 k/uL (0-1.0); Monocytes % (A) 9 %; Neutrophils # (A) 4.1 k/uL (1.3-7.7); Neutrophils % (A) 53 %; Platelet Count 279 k/uL (150-450); Poikilocytosis Slight; RBC 4.15 m/uL (3.80-5.40); RDW 14.2 % (11.5-15.5); WBC 7.7 k/uL (3.8-10.6)
--- NOTE | 2021-11-18 08:04 | P.HPOB ---
History of Present Illness H&P Date: 11/18/21 Chief Complaint: Here for elective induction of labor This is a 26-year-old white female 3 para 2002 EDC 11/20/2021 at 39-5/7 weeks' gestation. Patient presents today with spontaneous mild uterine contractions every 5-7 minutes apart, for induction of labor. She denies fluid leakage or vaginal bleeding. Fetus is been active throughout the . Past medical history is significant for childhood asthma, and a history of chlamydia in the past. Past surgical history adenoidectomy and tonsillectomy, wisdom teeth extracted. Current medications baby aspirin daily, vitamin daily. ALLERGIES include Bactrim to which reports stomach pain and codeine to which reports hallucinations. Family history significant for hypertension. Reproductive history normal spontaneous vaginal deliveries 2, unremarkable. Social history patient is single, her boyfriend Avery is present and involved. She has never been a smoker, denies alcohol or drug use. history is significant for blood type O+, rubella status immune. VDRL testing, urine culture, group B strep cultures, gonorrhea and chlamydia cultures, hepatitis B surface antigen and HIV testing negative. One-hour Glucola 109. On exam patient is 5 foot 5 inches, 204 pounds, blood pressure 115/74. Her no physical exam is within normal limits. Cervix is 4-5 cm dilated, 70% effaced, - 2 station, vertex presentation. Artificial amniorrhexis reveals clear fluid. heart rate is consistent with reactive NST. Uterine contractions are occurring approximately every 4-5 minutes apart of mild intensity. Impression: 39-5/7 weeks intrauterine , here for induction of labor, all signs reassuring. Plan: Pitocin per hospital protocol. Continue close maternal and surveill ance. Anticipate normal spontaneous vaginal delivery. Analgesic options reviewed. Review of Systems Constitutional: Reports as per HPI Past Medical History Past Medical History: Asthma Additional Past Medical History / Comment(s): childhood asthma History of Any Multi-Drug Resistant Organisms: None Reported Past Surgical History: Adenoidectomy, Tonsillectomy Past Anesthesia/Blood Transfusion Reactions: No Reported Reaction Past Psychological History: No Psychological Hx Reported Smoking Status: Never smoker Past Alcohol Use History: None Reported Past Drug Use History: None Reported - Past Family History Mother Family Medical History: No Reported History Medications and Allergies Home Medications Medication Instructions Recorded Confirmed Type Mrw-Eqhb-Wcydv Acid 1 cap PO DAILY 04/30/17 10/30/21 History [-U Capsule (formulary)] Allergies Allergy/AdvReac Type Severity Reaction Status Date / Time codeine Allergy Hallucinati Verified 10/30/21 21:44 ons sulfamethoxazole AdvReac Nausea & Verified 10/30/21 21:44 [From Bactrim] Vomiting trimethoprim [From Bactrim] AdvReac Nausea & Verified 10/30/21 21:44 Vomiting Exam Vital Signs Temp Pulse Resp BP Pulse Ox 11/18/21 06:48 96.5 F L 87 16 115/74 98 Intake and Output 11/17/21 11/18/21 11/18/21 22:59 06:59 14:59 Other: Weight 92.533 kg See dictation under HPI please Results Result Diagrams: 11/18/21 07:00 Abnormal Lab Results - Last 24 Hours (Table) 11/18/21 Range/Units 07:00 Hgb 10.9 L (11.4-16.0) gm/dL Hct 33.7 L (34.0-46.0) % Assessment and Plan Assessment: 39-5/7 weeks intrauterine , here for induction of labor, all signs reassuring. Plan: Oxytocin per hospital protocol. Close maternal and surveillance. Analgesic options reviewed. Anticipate normal spontaneous vaginal delivery. Time with Patient: Less than 30
[2021-11-18] MEDS ORDERED: BUPIVACAINE (PF) 0.25% 30 ML VIAL ONE (09:01)
[2021-11-18] MEDS ORDERED: SODIUM CHLORIDE 0.9% 100 ML BAG ONE (09:01)
[2021-11-18] MEDS ORDERED: fentaNYL (PF) 50 MCG/ML 5 ML AMP ONE (09:01)
--- NOTE | 2021-11-18 14:42 | P.PROBDLV ---
Vaginal Delivery Note - . Vaginal Delivery Note: This is a 26-year-old white female 3 para 2002 EDC 11/21/2019 to 39-5/7 weeks' gestation. Patient presented this morning for induction. Fetus is been active throughout the . Blood type O positive, rubella status immune, group B strep cultures negative. Please see dictated history and physical for details. Artificial amniorrhexis revealed clear fluid. Oxytocin was started and titrated per hospital protocol. Epidural was placed per her request. She progressed well through the first stage of labor and became completely dilated at 1130 hours. Perineal body was prepped and draped in the usual sterile fashion. She began the second stage of labor at that time. Patient pushed successfully and the 's head delivered occiput anterior. He restituted accordingly. There was a tight nuchal cord 1 that was reduced. The right or anterior shoulder was gently and easily delivered from underneath the pubic symphysis at which time the oropharynx, nasopharynx, and external nares were bulb suctioned. Patient was officially delivered of a liveborn male at 1135 hours. Umbilical cord was doubly clamped and ligated, he was handed to waiting nurses for evaluation where scores of 8 and 9 at one and 5 minutes respectively were given. The placenta delivered spontaneously, it was inspected and noted to be intact with trivascular cord at 1137 hours. Careful inspection of the cervix, vagina, perineum, periurethral, and perirectal areas revealed no lacerations and no defects. 's weight 8 lbs. 3 oz. The patient and her are requesting circumcision for their son. Total estimated blood los s 200 mL's. All sponge needle and enhancement counts are correct at the end of this procedure.
[2021-11-18] MEDS ORDERED: LANOLIN CREAM 5 GM TUBE TOPICAL PRN (16:56)
[2021-11-18] MEDS ORDERED: diphenhydrAMINE 50 MG/ML 1 ML VIAL IVP PRN ×2 (16:56)
[2021-11-18] MEDS ORDERED: SIMETHICONE 80 MG CHEWABLE PO PRN (16:56)
[2021-11-18] MEDS ORDERED: HYDROCORTISONE 2.5% RECTAL CREAM 30 GM TUBE RECTAL PRN (16:56)
[2021-11-18] MEDS ORDERED: BENZOCAINE/MENTHOL SPRAY 1 GM/SPRAY AEROSOL TOPICAL PRN (16:56)
[2021-11-18] MEDS ORDERED: ZOLPIDEM 5 MG TAB PO PRN (16:56)
[2021-11-18] MEDS ORDERED: diphenhydrAMINE 25 MG CAP PO PRN (16:56)
[2021-11-18] MEDS: IBUPROFEN 600 MG TAB PO PRN (20:02)
[2021-11-18] MEDS: SENNOSIDES-DOCUSATE SODIUM 1 EACH TAB PO SCH (20:02)
[2021-11-19] MEDS: ACETAMINOPHEN TAB 325 MG TAB PO PRN ×3 (00:02→19:40)
[2021-11-19] MEDS: LACTATED RINGERS 1,000 ML IV SCH ×2 (00:02→20:47)
[2021-11-19] MEDS: CALCIUM CARBONATE 500 MG CHEWABLE PO PRN ×2 (00:03→04:56)
[2021-11-19] MEDS: IBUPROFEN 600 MG TAB PO PRN ×3 (07:00→23:54)
[2021-11-19] MEDS: diphenhydrAMINE 50 MG CAP PO PRN ×2 (07:04→13:19)
[2021-11-19 07:18] LABS: Basophils # (A) 0.1 k/uL (0-0.2); Basophils % (A) 1 %; Eosinophils # (A) 0.1 k/uL (0-0.7); Eosinophils % (A) 2 %; HCT 30.3 % (34.0-46.0); HGB 9.5 gm/dL (11.4-16.0); Hypochromasia Moderate; Lymphocytes # (A) 2.3 k/uL (1.0-4.8); Lymphocytes % (A) 29 %; MCH 25.9 pg (25.0-35.0); MCHC 31.2 g/dL (31.0-37.0); Mean Platelet Volume 9.7; Monocytes # (A) 0.6 k/uL (0-1.0); Monocytes % (A) 8 %; Neutrophils # (A) 4.6 k/uL (1.3-7.7); Neutrophils % (A) 59 %; Platelet Count 186 k/uL (150-450); Poikilocytosis Slight; RBC 3.65 m/uL (3.80-5.40); RDW 13.9 % (11.5-15.5); WBC 7.8 k/uL (3.8-10.6)
[2021-11-19] MEDS: SENNOSIDES-DOCUSATE SODIUM 1 EACH TAB PO SCH ×2 (07:49→19:39)
--- NOTE | 2021-11-19 09:23 | P.PNOBGVD ---
Subjective - Subjective Patient reports: Reports appetite normal, Reports voiding normally, Reports pain well controlled, Reports ambulating normally : doing well Objective - Latest Vital Signs Latest vital signs: Vital Signs Temp Pulse Resp BP Pulse Ox 11/19/21 07:54 98.3 F 77 17 123/69 97 11/19/21 00:00 98.1 F 79 16 117/75 98 11/18/21 20:28 97.7 F 75 16 122/80 97 Intake and Output 11/18/21 11/19/21 11/19/21 22:59 06:59 14:59 Intake Total 2500 Balance 2500 Intake: IV 2500 Other: # Voids 2 2 - Exam Extremities: Present: normal Abdomen: Present: normal appearance, soft Uterus: Present: normal, firm (The uterine fundus is tonic and nontender just below the umbilicus.) - Labs Labs: Abnormal Lab Results - Last 24 Hours (Table) 11/19/21 Range/Units 06:42 RBC 3.65 L (3.80-5.40) m/uL Hgb 9.5 L (11.4-16.0) gm/dL Hct 30.3 L (34.0-46.0) % Assessment and Plan (1) Normal spontaneous vaginal delivery Current Visit: No Status: Acute Code(s): O80 - ENCOUNTER FOR FULL-TERM UNCOMPLICATED DELIVERY SNOMED Code(s): 00406978 Plan: Continue routine care. I would anticipate discharge home tomorrow pending no complications.
[2021-11-20] MEDS: CALCIUM CARBONATE 500 MG CHEWABLE PO PRN (00:09)
[2021-11-20 01:09] VITALS: RESP 16
[2021-11-20] MEDS: ACETAMINOPHEN TAB 325 MG TAB PO PRN ×2 (03:52→09:56)
[2021-11-20] MEDS: IBUPROFEN 600 MG TAB PO PRN ×2 (05:58→11:40)
[2021-11-20 07:51] VITALS: BP 132/84; PULSE 72; TEMP 98
[2021-11-20] MEDS: SENNOSIDES-DOCUSATE SODIUM 1 EACH TAB PO SCH (07:51)
--- NOTE | 2021-11-20 08:17 | P.DS ---
Providers Date of admission: 11/18/21 06:31 Expected date of discharge: 11/20/21 Attending physician: Andi Woodruff Primary care physician: Stated None Hospital Course: This is a 26-year-old white female 3 para 2002 EDC 11/20/2021 at 39-5/7 gestation who presented for induction with favorable multiparous cervix. History significant for Chlamydia, treated, and asthma, as well as large for gestational age fetus. [place] strep cultures negative. Please see dictated history and physical for details. Artificial amniorrhexis revealed clear fluid epidural was placed per her request. Oxytocin was started and titrated. She went on to deliver vaginally a liveborn male with scores of 8 and 9 at one and 5 minutes respectively. There was a nuchal cord 1 noted. Infant weight 8 lbs. 3 oz. or 3710 g. There was an estimated blood loss of 200 mL's. Please see dictated delivery note for details. This morning the patient is doing well. She is voiding, and bleeding, passing flatus without difficulty. Vital signs are stable and she is afebrile. Breasts are not engorged. She does have a small amount of peripheral edema, she is urinating frequently. [place] infant has been circumcised. There has been noted a small hairline fracture of the right clavicle, infant moving the right extremity well. Instructions given. Patient will follow-up in the office in 6 weeks. She is reminded no intercourse, tampons or douching. She will use [id number] Advil or Aleve, or Motrin as needed for pain. She will call with any fevers shakes or chills, foul smelling or copious lochia, with the passage of large blood clots, with any pain not alleviated by [id number] products, or indeed with any concerns. will follow-up with plater apprentice as per recommendations. I have discussed contraceptive options and she will discuss this further with her primary pipe testing technician in the office. Assessment: Doing well second day Patient Condition at Discharge: Good Plan - Discharge Summary Discharge Rx Participant: No New Discharge Prescriptions: No Action Fbq-Kmmc-Grlze Acid [-U Capsule (formulary)] 1 cap PO DAILY Discharge Medication List Hyh-Lnbv-Irmdq Acid [-U Capsule (formulary)] 1 cap PO DAILY 04/30/17 [History] Follow up Appointment(s)/Referral(s): Andi Woodrfuf MD [STAFF PHYSICIAN] - 6 Weeks Discharge Disposition: HOME SELF-CARE
== END 2021-11-20 14:01 | disposition home or self-care (01) | DRG 807 ==
LOC: 4FBP 06:31
PROVIDERS: ADMIT Obstetrics & Gynecology; ATTEND Obstetrics & Gynecology
PROC: 10E0XZZ Delivery of Products of Conception, External Approach (ICD-10-PCS; principal; 2021-11-18)
DX: O69.1XX0 Labor and delivery complicated by cord around neck, with compression, not applicable or unspecified (principal); Z37.0 Single live birth; J45.909 Unspecified asthma, uncomplicated; O99.52 Diseases of the respiratory system complicating childbirth; Z3A.39 39 weeks gestation of pregnancy; Z79.82 Long term (current) use of aspirin; Z82.49 Family history of ischemic heart disease and other diseases of the circulatory system; Z88.5 Allergy status to narcotic agent
CPT/HCPCS: 85025; 86850; 86900; 86901

== ENCOUNTER → 2021-12-31 | Outpatient (CLI) | payer OTHER ==
[2021-12-31 17:47] LABS: Basophils # (A) 0.03 X 10*3/uL (0.00-0.10); Basophils % (A) 0.4 %; Eosinophils # (A) 0.13 X 10*3/uL (0.04-0.35); Eosinophils % (A) 1.9 %; HCT 37.6 % (37.2-46.3); HGB 11.5 g/dL (12.0-15.0); Immature Grans, Automated 0.4 %; Lymphocytes # (A) 2.33 X 10*3/uL (0.90-5.00); Lymphocytes % (A) 34.2 %; MCH 25.8 pg (27.0-32.0); MCHC 30.6 g/dL (32.0-37.0); MCV 84.5 fL (80.0-97.0); Mean Platelet Volume 11.3 fL (9.5-12.2); Monocytes # (A) 0.61 X 10*3/uL (0.20-1.00); NRBC Per 100 WBC 0 /100 WBCS (0.0-0.0); Neutrophils # (A) 3.68 X 10*3/uL (1.80-7.70); Neutrophils % (A) 54.1 %; Platelet Count 221 X 10*3/uL (140-440); RBC 4.45 X 10*6/uL (4.10-5.20); RDW 17.6 % (11.5-14.5); WBC 6.81 X 10*3/uL (4.50-10.00)
== END | disposition home or self-care (01) ==
LOC: LABPAT 11:37
PROVIDERS: ATTEND Obstetrics & Gynecology
DX: Z30.2 Encounter for sterilization (principal)
CPT/HCPCS: 85025

== ENCOUNTER 2023-09-27 06:33 | Inpatient (IN) | payer OTHER ==
[2023-09-27] MEDS ORDERED: CARBOPROST TROMETHAMINE 250 MCG/ML 1 ML AMP IM PRN (06:44)
[2023-09-27] MEDS ORDERED: miSOPROStoL 200 MCG TAB PO PRN (06:44)
[2023-09-27] MEDS ORDERED: TRANEXAMIC 1,000 MG/100ML-NACL 1,000 MG in EMPTY BAG 1 BAG IV PRN (06:44)
[2023-09-27] MEDS ORDERED: OXYTOCIN 10 UNIT/ML 1 ML VIAL IM PRN (06:44)
[2023-09-27] MEDS ORDERED: METHYLERGONOVINE 0.2 MG/ML 1 ML AMP IM PRN (06:44)
[2023-09-27] MEDS ORDERED: LIDOCAINE 0.5% (PF) 5 MG/ML (50 ML SDV) SQ PRN (06:44)
[2023-09-27] MEDS ORDERED: TERBUTALINE 1 MG/ML VIAL SQ PRN (06:44)
[2023-09-27] MEDS: LACTATED RINGERS 1,000 ML IV SCH (07:16)
[2023-09-27] MEDS: OXYTOCIN 30 UNITS/500 ML NS 30 UNIT in SALINE 1 500ML.BAG IV SCH (07:17)
[2023-09-27 07:48] LABS: Basophils # (A) 0.1 k/uL (0-0.2); Basophils % (A) 1 %; Eosinophils # (A) 0.1 k/uL (0-0.7); Eosinophils % (A) 1 %; HCT 31.1 % (34.0-46.0); HGB 9.8 gm/dL (11.4-16.0); Hypochromasia Marked; Lymphocytes # (A) 2.3 k/uL (1.0-4.8); Lymphocytes % (A) 24 %; MCH 24.9 pg (25.0-35.0); MCHC 31.5 g/dL (31.0-37.0); MCV 78.9 fL (80.0-100.0); Mean Platelet Volume 10.5; Monocytes # (A) 0.7 k/uL (0-1.0); Monocytes % (A) 7 %; Neutrophils % (A) 65 %; Platelet Count 231 k/uL (150-450); Poikilocytosis Slight; RBC 3.95 m/uL (3.80-5.40); RDW 15.7 % (11.5-15.5); WBC 9.3 k/uL (3.8-10.6)
--- NOTE | 2023-09-27 08:26 | P.HPOB ---
History of Present Illness H&P Date: 09/27/23 Chief Complaint: 39-0/7 weeks, elective induction The patient is a 28-year-old 4 para 3-0-0-3 who presents to labor and delivery at 39-0/7 weeks as established by 5-week ultrasound. She is admitted for elective induction of labor with all signs reassuring, category 1 heart rate tracing. Her has been uncomplicated and group B strep status is negative. Obstetrical history: 4 para 3-0-0-3 with 3 term vaginal deliveries. Current statistics are listed in the history of present illness. EDC of 10/04/2023 was established by 5-week ultrasound. Laboratory workup demonstrates a blood type of O+ with a negative antibody screen. Rubella status is immune. The remainder of the laboratory workup was within normal limits. 1 hour Glucola was normal and group B strep status is negative. Gynecologic history: Unremarkable with no history of any infections to include STDs. Review of Systems Review of systems is confined to history of present illness. Past Medical History Past Medical History: Asthma Additional Past Medical History / Comment(s): childhood asthma History of Any Multi-Drug Resistant Organisms: None Reported Past Surgical History: Adenoidectomy, Tonsillectomy Past Anesthesia/Blood Transfusion Reactions: No Reported Reaction Past Psychological History: No Psychological Hx Reported Smoking Status: Never smoker Past Alcohol Use History: None Reported Past Drug Use History: None Reported - Past Family History Mother Family Medical History: No Reported History Medications and Allergies Home Medications Medication Instructions Recorded Confirmed Type Trp-Ydbh-Xfhqh Acid 1 cap PO DAILY 04/30/17 01/06/22 History [-U Capsule (formulary)] Allergies Allergy/AdvReac Type Severity Reaction Status Date / Time codeine Allergy Hallucinati Verified 09/27/23 06:43 ons sulfamethoxazole AdvReac Nausea & Verified 09/27/23 06:43 [From Bactrim] Vomiting trimethoprim [From Bactrim] AdvReac Nausea & Verified 09/27/23 06:43 Vomiting Exam Intake and Output 09/26/23 09/27/23 09/27/23 22:59 06:59 14:59 Other: Weight 97.522 kg In general, this is a well-developed, well-nourished white female in no acute di stress. Her heart has a regular rhythm and rate without murmur. Her lungs are clear to auscultation bilaterally in all ferrell. Her abdomen is gravid, nondistended, has normal active bowel sounds, soft, nontender, and without any palpable masses aside from the uterine fundus. Her extremities are without any cyanosis, clubbing, or edema and are nontender to palpation bilaterally. Digital cervical examination demonstrates the cervix to be approximately 4 cm dilated, 50% effaced, with the vertex and presentation at -2-3 station. Artificial rupture of membranes is carried out demonstrating clear fluid. Results Result Diagrams: 09/27/23 07:29 Abnormal Lab Results - Last 24 Hours (Table) 09/27/23 Range/Units 07:29 Hgb 9.8 L (11.4-16.0) gm/dL Hct 31.1 L (34.0-46.0) % MCV 78.9 L (80.0-100.0) fL MCH 24.9 L (25.0-35.0) pg RDW 15.7 H (11.5-15.5) % Assessment and Plan (1) Term Current Visit: Yes Status: Acute Code(s): Z34.90 - ENCNTR FOR SUPRVSN OF NORMAL , UNSP, UNSP TRIMESTER SNOMED Code(s): 91372888 Plan: Pitocin augmentation has been started and she has undergone artificial rupture of membranes. She will have close maternal and surveillance and expectant management will be practiced. She is a good candidate for either IV or epidural analgesia and has requested epidural analgesia to be placed shortly. We would anticipate normal spontaneous vaginal delivery in the relatively near future.
[2023-09-27] MEDS ORDERED: HYDROcodone/APAP 7.5-325MG 1 EACH TAB PO PRN (12:08)
[2023-09-27] MEDS ORDERED: HYDROCORTISONE 2.5% RECTAL CREAM 30 GM TUBE RECTAL PRN (12:08)
[2023-09-27] MEDS ORDERED: diphenhydrAMINE 25 MG CAP PO PRN (12:08)
[2023-09-27] MEDS ORDERED: HYDROcodone/APAP 5-325MG 1 EACH TAB PO PRN (12:08)
[2023-09-27] MEDS ORDERED: SIMETHICONE 80 MG CHEWABLE PO PRN (12:08)
[2023-09-27] MEDS ORDERED: BENZOCAINE/MENTHOL SPRAY 1 GM/SPRAY AEROSOL TOPICAL PRN (12:08)
[2023-09-27] MEDS ORDERED: ZOLPIDEM 5 MG TAB PO PRN (12:08)
[2023-09-27] MEDS ORDERED: diphenhydrAMINE 50 MG/ML 1 ML VIAL IVP PRN ×2 (12:08)
[2023-09-27] MEDS ORDERED: diphenhydrAMINE 50 MG CAP PO PRN (12:08)
--- NOTE | 2023-09-27 12:12 | P.PROBDLV ---
Vaginal Delivery Note - . Vaginal Delivery Note: The patient is a 28-year-old 4 para 3-0-0-3 admitted at 39-0/7 weeks by good dating parameters. She is admitted for elective induction with all signs reassuring. Her has been uncomplicated and group B strep status is negative. On labor and delivery, she had Pitocin started followed by artificial rupture of membranes for clear fluid. She had an epidural catheter placed for analgesia but it failed to provide significant relief. Nevertheless she progressed rapidly through the active phase of labor to complete and then pushed to a precipitous normal spontaneous vaginal delivery in my absence of a viable 8 pound 8 ounce baby girl with Apgars of 8 at 1 minute and 8 at 5 minutes. The nurses report that there may have been a mild shoulder dystocia which was reduced with Corinna maneuver and suprapubic pressure. The placenta was delivered spontaneously, intact, and grossly normal with a grossly normal three- vessel cord inserted just off of center. There was a grossly normal three- vessel cord with velamentous insertion. There were no lacerations of the perineum, vagina, or cervix. Estimated blood loss for the case was 100 cc or less. I did arrive on the scene approximately 3 to 4 minutes after delivery of the infant and did deliver the placenta and examine the perineum. All sponge, instrument, and needle counts were correct. There were no complications aside from the precipitous nature of the delivery. Both mother and are resting comfortably in recovery.
[2023-09-27] MEDS ORDERED: OXYTOCIN 30 UNITS/500 ML NS 30 UNIT in SALINE 1 500ML.BAG IV SCH (12:15)
[2023-09-27] MEDS: IBUPROFEN 600 MG TAB PO PRN (12:44)
[2023-09-27] MEDS: ACETAMINOPHEN TAB 325 MG TAB PO PRN (15:57)
[2023-09-27] MEDS: SENNOSIDES-DOCUSATE SODIUM 1 EACH TAB PO SCH (20:24)
[2023-09-28 07:19] LABS: Basophils # (A) 0.1 k/uL (0-0.2); Basophils % (A) 1 %; Eosinophils # (A) 0.1 k/uL (0-0.7); Eosinophils % (A) 1 %; HCT 30.9 % (34.0-46.0); HGB 9.4 gm/dL (11.4-16.0); Hypochromasia Moderate; Lymphocytes # (A) 2.5 k/uL (1.0-4.8); Lymphocytes % (A) 26 %; MCH 23.8 pg (25.0-35.0); MCHC 30.3 g/dL (31.0-37.0); MCV 78.6 fL (80.0-100.0); Mean Platelet Volume 10.5; Monocytes # (A) 0.8 k/uL (0-1.0); Monocytes % (A) 8 %; Neutrophils # (A) 6.2 k/uL (1.3-7.7); Neutrophils % (A) 63 %; Platelet Count 219 k/uL (150-450); Poikilocytosis Slight; RBC 3.93 m/uL (3.80-5.40); RDW 15.8 % (11.5-15.5); WBC 9.9 k/uL (3.8-10.6)
--- NOTE | 2023-09-28 09:34 | P.PNOBGVD ---
Subjective - Subjective Patient reports: Reports appetite normal, Reports voiding normally, Reports pain well controlled, Reports ambulating normally : doing well Objective - Latest Vital Signs Latest vital signs: Vital Signs Temp Pulse Resp BP Pulse Ox 09/28/23 08:13 97.6 F 68 16 126/80 09/28/23 01:00 97.8 F 80 16 136/85 98 09/27/23 21:00 97.6 F 72 16 121/82 98 09/27/23 17:00 98.4 F 94 16 119/62 09/27/23 14:05 97 F L 80 16 113/53 09/27/23 13:50 91 16 120/70 09/27/23 13:35 97 16 118/60 09/27/23 13:20 92 16 117/62 09/27/23 13:05 87 16 115/56 09/27/23 12:50 89 16 111/58 09/27/23 12:35 85 16 117/61 09/27/23 12:20 87 16 127/62 09/27/23 12:05 90 16 121/62 - Exam Extremities: Present: normal Abdomen: Present: normal appearance, soft Uterus: Present: normal, firm (And fundus is tonic and nontender well below the umbilicus.) - Labs Labs: Abnormal Lab Results - Last 24 Hours (Table) 09/28/23 Range/Units 06:55 Hgb 9.4 L (11.4-16.0) gm/dL Hct 30.9 L (34.0-46.0) % MCV 78.6 L (80.0-100.0) fL MCH 23.8 L (25.0-35.0) pg MCHC 30.3 L (31.0-37.0) g/dL RDW 15.8 H (11.5-15.5) % Assessment and Plan (1) Term Current Visit: Yes Status: Acute Code(s): Z34.90 - ENCNTR FOR SUPRVSN OF NORMAL , UNSP, UNSP TRIMESTER SNOMED Code(s): 08817251 (2) Normal spontaneous vaginal delivery Current Visit: Yes Status: Acute Code(s): O80 - ENCOUNTER FOR FULL-TERM UNCOMPLICATED DELIVERY SNOMED Code(s): 29935131 Plan: Continue routine care. The patient has requested to remain in the hospital for another day and will likely be discharged home tomorrow pending no complications. I have encouraged her to continue to walk routinely.
[2023-09-29 08:37] VITALS: BP 117/76; PULSE 85; RESP 17; TEMP 97.4
--- NOTE | 2023-09-29 10:04 | P.DS ---
Providers Date of admission: 09/27/23 06:33 Expected date of discharge: 09/29/23 Attending physician: Andi Woodruff Primary care physician: Stated None - Discharge Diagnosis(es) (1) Term Current Visit: Yes Status: Acute (2) Normal spontaneous vaginal delivery Current Visit: Yes Status: Acute Hospital Course: The patient is a 28-year-old 4 para 3-0-0-3 who presents to labor and delivery at 39-0/7 weeks for an elective induction. She is admitted and has Pitocin augmentation started. heart tones are category 1. Her was uncomplicated and group B strep status is negative. She underwent artificial rupture of membranes for clear fluid. She did have an epidural catheter placed for analgesia and progressed fairly quickly through the active phase of labor to complete. As her epidural was not providing significant relief. She then had a precipitous delivery in my absence of a viable 8 pound 8 ounce baby girl with Apgars of 8 at 1 minute and 8 at 5 minutes. I arrived perhaps 2 to 3 minutes after delivery. Her course was unremarkable with vital signs remaining stable and her temperature was afebrile throughout. She was deemed stable for discharge on day #2 and was discharged home to follow-up in the office in 6 weeks time routinely. Discharge instructions included calling for any significantly increased bleeding or foul-smelling lochia, significantly increased fever or abdominal pain, perineal complaints, breast complaints, or anything else that concerned her. She was additionally instructed to have nothing in the vagina for at least 6 weeks time to include intercourse. She understood her instructions and agrees to follow-up as noted above. Discharge medications included only [id number] analgesic pain medications. Maternal blood type is O+ and rubella status is immune. Procedures: #1. Pitocin induction #2. Artificial rupture of membranes #3. Epidural analgesia #4. Precipitous normal spontaneous vaginal delivery Patient Condition at Discharge: Stable Plan - Discharge Summary New Discharge Prescriptions: No Action Pdf-Gphw-Hxjck Acid [-U Capsule (formulary)] 1 cap PO DAILY Discharge Medication List Ntg-Blpk-Autop Acid [-U Capsule (formulary)] 1 cap PO DAILY 04/30/17 [History] Follow up Appointment(s)/Referral(s): Andi Woodruff MD [STAFF PHYSICIAN] - 6 Weeks Discharge Disposition: HOME SELF-CARE
== END 2023-09-29 11:55 | disposition home or self-care (01) | DRG 560 ==
LOC: 4FBP 06:33
PROVIDERS: ADMIT Obstetrics & Gynecology; ATTEND Obstetrics & Gynecology
PROC: 10E0XZZ Delivery of Products of Conception, External Approach (ICD-10-PCS; principal; 2023-09-27)
PROC: 10907ZC Drainage of Amniotic Fluid, Therapeutic from Products of Conception, Via Natural or Artificial Opening (ICD-10-PCS; 2023-09-27)
PROC: 3E033VJ Introduction of Other Hormone into Peripheral Vein, Percutaneous Approach (ICD-10-PCS; 2023-09-27)
DX: O66.0 Obstructed labor due to shoulder dystocia (principal); Z37.0 Single live birth; O62.3 Precipitate labor; Z3A.39 39 weeks gestation of pregnancy; Z88.5 Allergy status to narcotic agent; Z88.2 Allergy status to sulfonamides
CPT/HCPCS: 85025; 86850; 86900; 86901